=== PATIENT | female | born 1935 | race Caucasian/White ===

== ENCOUNTER → 2017-03-04 | Day surgery (SDC) | payer MEDICARE, BC ==
[~2017-03-04] MED LIST: Lactated Ringers 1,000 ML IV SCH; Propofol 200 MG/20 ML SDV IV ONE
[2017-03-04 09:23] VITALS: BP 172/78
--- NOTE | 2017-03-04 10:34 | OR ---
DATE OF OPERATION: 03/04/2017 PREOPERATIVE DIAGNOSIS: 1. GASTROESOPHAGEAL REFLUX DISEASE. 2. ALTERED BOWEL HABITS. 3. ANEMIA. POSTOPERATIVE DIAGNOSIS: 1. GASTROESOPHAGEAL REFLUX DISEASE. 2. ALTERED BOWEL HABITS. 3. ANEMIA. SURGEON: Montrell Melo MD PROCEDURE: 1. ESOPHAGOGASTRODUODENOSCOPY WITH BIOPSIES X3. 2. FULL-LENGTH COLONOSCOPY. 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 COMPLICATIONS: None. SPECIMEN: Biopsy x3 antral mass. FINDINGS: 1. Full-length EGD. 2. Antral mass with necrosis, worrisome for malignancy. 3. Hiatal hernia with GERD. No esophagitis or Flores's changes. 4. Normal full-length colonoscopy. RECOMMENDATIONS: The patient will be initiated on proton pump therapy and have close followup with biopsy reports. INDICATIONS: The patient apparently has been having some altered bowel habits and was found to be iron deficient. She admitted to having some reflux symptoms. Dr. Perez sent her for upper and lower endoscopy. DESCRIPTION OF PROCEDURE: The patient was prepped and draped, placed in the left lateral decubitus position. A lubricated Olympus gastroscope was inserted over a bit and advanced to cricopharyngeus and easily advanced into the esophagus. Esophageal lining was benign in its entire course. The Z-line was crisp around 37.5 cm associated with a small hiatal hernia. There was some spontaneous reflux, but no distal esophagitis, stricturing, ulceration, or Flores's changes. The scope was advanced into the stomach and through to the distal stomach where patient had a large rolled up antral mass. There was necrotic center consistent with possibly just a really deep ulcer, but there was mass effect to this worrisome for a possible malignancy. We were able to get two biopsy edges of this mass and one on the center of the necrosis with resolution of bleeding at all three biopsy sites. Pylorus was obstructed due to the size of this, but we were able to intubate into the small bowel, got into the second and third portion of duodenum which were benign, mild amount of duodenitis to the duodenum as well. No biopsies of that were taken. The scope was brought back into the stomach and retroflexed. The rest of the fundus and cardia appeared completely benign other than the small hernia visualized from below. Air was then suctioned from the stomach and the scope was removed without complication. A lubricated Olympus colonoscope was then inserted and easily advanced to the cecum. The bowel prep was marginal. There was a lot of liquid dark stool but easily suctioned. We were able to visualize the ileocecal valve. Throughout the entire length of the colon upon withdrawal, I found no signs of any polyps, masses, ulcerations, or bleeding sites. No vascular abnormalities or signs of colitis. There were no significant diverticula. The rectal vault was unremarkable. Retroflexion of scope in the rectum showed no anal lesions. Air was then suctioned. Scope was removed without complication. TAVO/MARIAM /[id number]
== END ==
LOC: CC.SDS 07:25
PROVIDERS: ATTEND Family Medicine
DX: K25.9 Gastric ulcer, unspecified as acute or chronic, without hemorrhage or perforation (principal); K31.7 Polyp of stomach and duodenum; K44.9 Diaphragmatic hernia without obstruction or gangrene; I10 Essential (primary) hypertension; K21.9 Gastro-esophageal reflux disease without esophagitis; Z79.899 Other long term (current) drug therapy
CPT/HCPCS: 00810; 43239; 45378; 87081; J2704; J7120; 88305

== ENCOUNTER → 2017-04-22 | Day surgery (SDC) | payer MEDICARE, BC ==
[2017-04-22 10:47] VITALS: BP 150/76
--- NOTE | 2017-04-22 11:54 | OR ---
DATE OF OPERATION: 04/22/2017 PREOPERATIVE DIAGNOSIS: FOLLOWUP GASTRIC ULCER. POSTOPERATIVE DIAGNOSIS: FOLLOWUP GASTRIC ULCER. SURGEON: Montrell Melo MD PROCEDURE: ESOPHAGOGASTRODUODENOSCOPY WITH BIOPSIES X7. ANESTHESIA: PIGMENT WEIGHER due to advanced age and chronic GERD. COMPLICATIONS: None. SPECIMEN: 1. Biopsy x1 of duodenal bulb. 2. Antral biopsy x6. FINDINGS: 1. Full-length EGD. 2. Minimal duodenitis, duodenal bulb. 3. Ongoing fungating mass with ulceration, mid to distal antrum. RECOMMENDATIONS: Close followup pending path report. INDICATIONS: The patient had a prior EGD. She had a very large necrotic ulcer in her antrum which was almost gave a large masslike effect, very fungating. Biopsies were negative for any malignancy. We recommended a 6-week followup to ensure healing and further biopsies for thoroughness. DESCRIPTION OF PROCEDURE: The patient was prepped and draped, placed in left lateral decubitus position. A lubricated Olympus gastroscope was inserted over a bit, advanced to cricopharyngeus and easily intubated in the esophagus. Esophageal lining benign in its entire course. Again a very small hiatal hernia was present without any distal esophagitis, stricturing, ulceration, or Flores's changes. The scope was advanced into the stomach. We were to maneuver through the antrum and pylorus into the second portion of duodenum. The duodenal bulb did show a very mild amount of inflammation. We did a biopsy of that. The scope was brought back into the stomach and retroflexed the upper fundus and cardia, again were benign. The patient in the antrum again has a large fungating, almost dual-sided ulcer which is with a very large necrotic base. There has been some bleeding with signs of some dried blood in the stomach. Tissue again was necrotic and showed minimal signs of healing compared to 6 weeks ago. We did a total of 6 separate biopsies of the areas of worry and this again was very hard and firm tissue. No other lesions were identified. Air was suctioned and scope was removed without complication. TAVO/MARIAM /[id number]
== END ==
LOC: CC.SDS 09:10
PROVIDERS: ATTEND Family Medicine
DX: K29.80 Duodenitis without bleeding (principal); K44.9 Diaphragmatic hernia without obstruction or gangrene; K25.9 Gastric ulcer, unspecified as acute or chronic, without hemorrhage or perforation; K21.9 Gastro-esophageal reflux disease without esophagitis; E78.5 Hyperlipidemia, unspecified; I10 Essential (primary) hypertension; E03.9 Hypothyroidism, unspecified; E55.9 Vitamin D deficiency, unspecified; Z79.899 Other long term (current) drug therapy; Z90.710 Acquired absence of both cervix and uterus; Z98.890 Other specified postprocedural states
CPT/HCPCS: 00740; 43239; J2704; J7120; 88305; 88341; 88342